=== PATIENT | female | born 1965 | race Caucasian/White ===

== ENCOUNTER 2023-07-25 13:15 | Emergency (ER) | payer OTHER, SELFPAY ==
[2023-07-25 13:29] VITALS: BP 119/75
[2023-07-25 13:47] LABS: % Basophils 0.8 % (0-2); % Eosinophils 0.8 % (0-6); % Immature Granulocytes 0.1 % (0-0.5); % Lymphocytes 38.2 % (20.5-51.1); % Monocytes 8.8 % (1.7-9.3); % Neutrophils 51.3 % (42.2-75.2); Absolute Basophils 0.1 10^3/uL (0-0.2); Absolute Eosinophils 0.1 10^3/uL (0-0.7); Absolute Lymphocytes 2.8 10^3/uL (1.2-3.4); Absolute Monocytes 0.6 10^3/uL (0.1-0.6); Absolute Neutrophils 3.7 10^3/uL (1.4-6.5); Hematocrit 39.9 % (37.0-47.0); Hemoglobin 14.1 g/dL (12.0-16.0); Mean Corp Hgb Conc. 35.3 g/dL (33.0-37.0); Mean Corpuscular Hgb 29.6 pg (27.0-31.0); Mean Corpuscular Volume 83.8 fL (81.0-99.0); Mean Platelet Volume 8.9 fL (7.4-10.4); Nucleated Red Blood Cells % 0 %; Platelet Count 290 10^3/uL (130-400); Red Blood Cell Count 4.76 10^6/uL (4.20-5.40); Red Cell Dist. Width 12.8 % (11.5-14.5); White Blood Cell Count 7.2 10^3/uL (4.8-10.8)
[2023-07-25 14:00] LABS: ALT (SGPT) 30 U/L (0-35); AST (SGOT) 24 U/L (14-36); Albumin 4.5 g/dl (3.5-5.0); Alkaline Phosphatase 78 U/L (38-126); Blood Urea Nitrogen 16 mg/dl (7-17); Calcium 9.8 mg/dl (8.4-10.2); Carbon Dioxide 27 mmol/L (22-30); Chloride 109 mmol/L (98-107); Glucose 131 mg/dl (70-99); Potassium 4.1 mmol/L (3.5-5.1); Sodium 140 mmol/L (135-145); Total Bilirubin 1.1 mg/dl (0.2-1.3); Total Protein 7.8 g/dl (6.3-8.2); eGFR > 60.00
[2023-07-25 14:53] VITALS: BP 140/101
[2023-07-25 15:00] VITALS: BP 124/83
[2023-07-25 16:00] VITALS: BP 130/78
--- NOTE | 2023-07-25 16:41 | ED.GENMED ---
History of Present Illness
General
Chief Complaint: Dizziness
Source: patient and other (With use of language line)
Exam Limitations: none
Time Seen by Provider: 07/25/23 15:54
Nursing documentation reviewed up to this point in time: agreed with
Travel History
Have you had any contact with someone who has COVID-19?: No
Do you have any symptoms of coronavirus? Fever > 100 degrees, chills, cough, shortness of breath, sore throat, loss of taste or smell, muscle aches, or headache?: No
History of Present Illness
History of Present Illness:
Patient is a 57-year-old [place]-speaking female who presents to the ER for evaluation. Patient started with dizziness since Wednesday. She complains of feeling off balance spinning with changing position. She does feel nauseous with this but has
not vomited. She did have a mild sore throat on Wednesday denies any fever. She reports sore throat has since resolved. She denies any trauma. Denies any chiropractic regulation. Denies any difficulty speaking denies any upper or lower
extremity numbness tingling weakness. She was seen in urgent care but fell because she was very dizzy. She denies hitting her head.
Review of Systems
Review of Systems
Allergies reviewed?: Yes
All Other Systems: ROS reviewed and negative except as documented in HPI and ROS
Constitutional: Reports no symptoms; Denies fever, fatigue or chills
EENT: Reports no symptoms
Respiratory: Reports no symptoms
Cardiac: Reports no symptoms; Denies chest pain, diaphoresis, palpitations or syncope
ABD/GI: Reports nausea; Denies vomiting
: Reports no symptoms
Musculoskeletal: Reports no symptoms
Skin: Reports no symptoms
Neurological: Reports other (feels dizzy/room spinning sensation )
Hematologic/Lymphatic: Reports no symptoms
Psychiatric: Reports no symptoms
Phy Exam
General Physical Exam
General Presentation: no apparent distress
General age: appears stated age
General Skin: warm and dry
Course
Orders/Labs/Results
Orders:
Orders
07/25/23 13:32
EKG [Electrocardiogram (*1)] Urgent
Reason for Study: Vertigo / Dizzy
EKG- Treatment ONCE
07/25/23 13:35
CBC/With Diff [Complete Blood Count/With Diff] Urgent
CMP [Comprehensive Metabolic Panel] Urgent
07/25/23 16:55
CT Head W/o Iv Contrast Urgent
Comment:
Reason For Exam: new onset vertigo
07/25/23 16:56
Meclizine [Antivert] 25 mg PO NOW STA
Abnormal Lab Results
07/25/23
13:35
Chloride 109 H mmol/L
(98-107)
Glucose 131 H mg/dl
(70-99)
07/25/23 13:35
07/25/23 13:35
Vital Signs
Initial and Last Documented VS:
Initial Vital Signs
Temp Pulse Resp BP Pulse Ox
98.3 F 74 16 119/75 98
07/25/23 13:29 07/25/23 13:29 07/25/23 13:29 07/25/23 13:29 07/25/23 13:29
Last Documented Vital Signs
Temp Pulse Resp BP Pulse Ox
98.3 F 74 15 124/74 97
07/25/23 13:29 07/25/23 17:43 07/25/23 17:43 07/25/23 20:04 07/25/23 20:05
Corporate Investigator consulted with Physician
Name of Physician Consulted: milan
MDM/Problems Addressed
Differential Diagnosis Includes:
not limited to: vertigo , dizziness,
MDM/Problems Addressed:
Patient is a 57 old female who presents to the ER for evaluation of dizziness room spinning. symptoms started on Wednesday. She denies any associated trauma no recent chiropractor manipulation no neck pain. Patient presents awake alert no acute
distress language line used for translation. She is oriented. She follows commands. She reports this occurs with changing positions or turning her head. She has nauseous with this. Patient was given meclizine here and CAT scan was performed CAT
scan does not show significant sinus disease involving right frontal ethmoid and sphenoid sinuses. Patient denies recent illness nasal congestion fever chills. She is nontoxic. There is no meningismus on exam.
Patient was given meclizine. Patient was reevaluated feeling much better dizziness has completely resolved. She is ambulatory with a steady gait without symptoms. She does have a family doctor. I discussed with patient to closely follow-up with
PCP in the next several days for reevaluation of dizziness as well as CAT scan results.
All instructions were reviewed with lunch wagon operator line. . A prescription for meclizine was sent to pharmacy.
*Radiology
Radiology exam reviewed: radiology read reviewed
*Pulse Oximetry
Patient hypoxic: no
*Critical Care Note
Total Time (30-74mins, 75-104mins- exclusive of procedures): Not Applicable
ED Attending Note
-
Portions of this chart may have been created with voice recognition software.� Occasional wrong word or��sound alike� substitutions may have occurred due to the inherent limitations of voice recognition software.
Discharge Plan
Departure
Patient Disposition: Home (Routine Discharge)
Date of Disposition: 07/25/23
Time of Disposition: 19:48
Patient with high blood pressure during this ER visit?: Yes
Condition: Fair
Covid-19: Not Applicable
Discharge Problem:
Vertigo
Instructions: Vertigo (a Type of Dizziness) (DC), BLOOD PRESSURE
Prescriptions:
New
meclizine 25 mg tablet
25 mg PO TID PRN (Reason: dizziness) Qty: 10 0RF
Referrals:
UNKNOWN - PT DOES,NOT KNOW [Family Provider] -
Activity Restrictions/Additional Instructions:
A prescription for meclizine was sent to your pharmacy. Take as directed. Follow-up with your family doctor in the next 2 days for reevaluation of your symptoms. Return if any worsening of symptoms. Please go over CAT scan results with your
family doctor.
Interventions
Interventions:
*Risk Screen - Suicide Last Done: 07/25/23 13:29
*General Assessment Last Done: 07/25/23 13:29
*Neglect/Abuse Screening Last Done: 07/25/23 13:29
ED- Fall Risk Assessment Last Done: 07/25/23 20:08
*ED COVID-19 Vaccine History Last Done: 07/25/23 20:08
*Nursing Disposition Last Done: 07/25/23 20:08
ED- Neurological Assessment Last Done: 07/25/23 15:00
ED- Cardiac Assessment Last Done: 07/25/23 15:00
Discharge Date and Time
Discharge Date/Time: 07/25/23 20:09
[2023-07-25] MEDS: ANTIVERT 25 MG PO (17:00)
[2023-07-25 20:04] VITALS: BP 124/74
== END 2023-07-25 20:09 | disposition home or self-care (01) ==
LOC: EMR 13:15
PROVIDERS: Emergency Medicine; EMERGENCY PHYSICIAN Emergency Medicine
DX: R42 Dizziness and giddiness (principal); R11.0 Nausea; J02.9 Acute pharyngitis, unspecified; W19.XXXA Unspecified fall, initial encounter; I10 Essential (primary) hypertension; Z88.1 Allergy status to other antibiotic agents
CPT/HCPCS: 99284; 70450; 80053; 85025; 93005